=== PATIENT | female | born 1960 | race Caucasian/White ===

== ENCOUNTER 2018-01-10 10:07 | Outpatient (CLI) | payer BC ==
--- NOTE | 2018-01-10 12:23 | RAD ---
RIGHT FOOT: Date: 01/10/18 COMPARISON: None. HISTORY: Stress fracture follow-up. FINDINGS: Three views of the right foot show no evidence of acute fracture or dislocation. No significant degen erative changes are seen. No soft tissue swelling is seen. IMPRESSION: Unremarkable exam. POS: [facility]
== END 2018-01-10 10:08 | disposition home or self-care (01) ==
LOC: RAD-FRANK 10:07
PROVIDERS: ATTEND Nurse Practitioner Family
DX: M84.374S Stress fracture, right foot, sequela (principal)

== ENCOUNTER 2021-11-13 12:03 | Outpatient (CLI) | payer BC | END 2021-11-13 12:04 | disposition home or self-care (01) | LOC: BICMAMMO 12:03 | PROVIDERS: ATTEND Nurse Practitioner Family | DX: N63.20 Unspecified lump in the left breast, unspecified quadrant (principal); N64.4 Mastodynia | CPT/HCPCS: 77066; G0279 ==

== ENCOUNTER 2022-03-14 09:34 | Outpatient (CLI) | payer BC | END 2022-03-14 09:35 | disposition home or self-care (01) | LOC: RAD 09:34 | PROVIDERS: ATTEND Internal Medicine Critical Care Medicine | DX: R06.00 Dyspnea, unspecified (principal); J90 Pleural effusion, not elsewhere classified | CPT/HCPCS: 71046 ==

== ENCOUNTER 2024-02-20 11:04 | Outpatient (CLI) | payer BC, MEDICARE | END 2024-02-20 11:05 | disposition home or self-care (01) | LOC: BICMAMMO 11:04 | PROVIDERS: ATTEND Family Medicine | DX: Z12.31 Encounter for screening mammogram for malignant neoplasm of breast (principal) | CPT/HCPCS: 77063; 77067 ==

== ENCOUNTER 2024-05-08 07:40 | Outpatient (CLI) | payer MEDICARE, BC ==
[2024-05-08] MEDS ORDERED: Iopamidol 370 76% 100 ML VIAL ONE (12:57)
== END 2024-05-08 07:41 | disposition home or self-care (01) ==
LOC: CT 07:40
PROVIDERS: ATTEND Family Medicine
DX: R10.2 Pelvic and perineal pain (principal); R19.8 Other specified symptoms and signs involving the digestive system and abdomen
CPT/HCPCS: 74178; 82565; Q9967